=== PATIENT | female | born 1980 | race Caucasian/White ===

== ENCOUNTER 2018-12-18 19:50 | Emergency (ER) | payer OTHER ==
[~2018-12-18] VITALS: Ht 160 cm; Wt 86.2 kg
== END 2018-12-18 21:19 | disposition home or self-care (01) ==
LOC: ER 19:50
DX: B34.8 Other viral infections of unspecified site (principal); F60.4 Histrionic personality disorder; R09.81 Nasal congestion; J45.998 Other asthma